=== PATIENT | female | born 1980 | race Caucasian/White ===

== ENCOUNTER → 2018-11-11 | Emergency (ER) | payer OTHER ==
[~2018-11-11] VITALS: Ht 165.1 cm; Wt 63.6 kg
[~2018-11-11] MED LIST: CEPHALEXIN500 M1 PO; FISH OIL1000 MG PO; LANTUS100 U/ML; LANTUS100 U/ML SC; LEVEMIR100 U/ML SQ; LEXAPRO 10MG10 MG PO; MOTRIN 800800 MG/TAB PO; NOVOLOG 100U100 U/M1 SQ; NOVOLOG FLEX100 U/ML SC; PERCOCET 325 MG1 TA2 PO; PRENATAL1 TA1 PO; PROCARDIA XL 6060 MG PO
[2018-11-11 12:25] VITALS: BP 137/75; PULSE 75; TEMP 98.5
== END ==
LOC: COL.ER 12:04
DX: S01.511A Laceration without foreign body of lip, initial encounter (principal); S09.93XA Unspecified injury of face, initial encounter; E10.9 Type 1 diabetes mellitus without complications; W26.8XXA Contact with other sharp object(s), not elsewhere classified, initial encounter; Y92.59 Other trade areas as the place of occurrence of the external cause

== ENCOUNTER → 2018-12-08 | Outpatient (CLI) | payer OTHER | LOC: COL.RAD 13:47 | DX: S56.11 Strain of flexor muscle, fascia and tendon of other and unspecified finger at forearm level (principal) ==

== ENCOUNTER 2018-12-10 07:56 | Outpatient (RCR) | payer OTHER | END 2018-12-14 09:45 | disposition home or self-care (01) | LOC: WSOH 07:56 | DX: Z02.89 Encounter for other administrative examinations (principal) ==

== ENCOUNTER → 2019-01-08 | Outpatient (CLI) | payer BC | LOC: COL.RAD 07:43 | DX: R14.0 Abdominal distension (gaseous) (principal) | CPT/HCPCS: A9541 ==

== ENCOUNTER 2019-10-21 11:32 | Outpatient (RCR) | payer OTHER | END 2020-01-19 | disposition home or self-care (01) | LOC: WSOH | DX: S60.221A Contusion of right hand, initial encounter (principal); S60.511A Abrasion of right hand, initial encounter; F17.210 Nicotine dependence, cigarettes, uncomplicated; Z98.890 Other specified postprocedural states; F41.8 Other specified anxiety disorders; E11.9 Type 2 diabetes mellitus without complications; K52.9 Noninfective gastroenteritis and colitis, unspecified; Y99.0 Civilian activity done for income or pay ==

== ENCOUNTER 2023-07-23 15:37 | Outpatient (RCR) | payer BC | END 2023-07-24 | disposition home or self-care (01) | LOC: COL.CR | DX: I25.10 Atherosclerotic heart disease of native coronary artery without angina pectoris (principal) ==

== ENCOUNTER 2023-08-20 16:24 | Outpatient (RCR) | payer BC | END 2023-08-20 16:28 | disposition home or self-care (01) | LOC: COL.CR 16:24 | DX: I25.10 Atherosclerotic heart disease of native coronary artery without angina pectoris (principal) ==